=== PATIENT | male | born 1950 | race Caucasian/White ===

== ENCOUNTER → 2025-06-14 07:36 | Outpatient (CLI) | payer MEDICARE, SELFPAY ==
--- NOTE | 2025-06-14 17:53 | DI.NM.S_ITS ---
DATE OF SERVICE: 06/14/2025 EXERCISE TREADMILL STRESS TEST PROCEDURE PERFORMED: Exercise treadmill stress test without imaging. ORDERING PROVIDER: Dr. Arpan Ortez. INDICATIONS: The patient is a 75-year-old, hypertensive male with a history of carotid disease and asymptomatic bradycardia. FINDINGS: 1. The patient was able to exercise for 9 minutes on a standard Herbert protocol suggesting excellent exercise capacity with an GLORY of -51%, achieving 10.1 METS. 2. He had a normal heart rate response to exercise with a resting heart rate of 58 bpm increasing to a maximum of 140 bpm (98% of his predicted maximum). He had a normal blood pressure response with a resting blood pressure of 160/90 increasing to a maximum of 196/80. 3. He had moderate exertional dyspnea but no chest discomfort or other anginal symptoms. 4. His resting ECG shows sinus bradycardia at [address] segments. With exercise, there are no significant ST-segment shifts or arrhythmias except for occasional PACs and PVCs, the latter rarely in couplets, but no other complex ventricular ectopy. IMPRESSION: 1. Normal exercise treadmill stress test for ischemia. 2. Excellent exercise capacity without angina. He had a normal heart rate and blood pressure response to exercise. 3. Occasional PACs and PVCs, the latter rarely in couplets, but no other complex ectopy. Vik Carbajal - ASTER/hanh/TONE doc#: [id number]/job#: [id number] dd: 06/14/2025 17:21:00 dt: 06/14/2025 17:44:00 DICTATING MD/COPIES TO: Aubrey Sharma MD; Arpan Ortez MD COPIES MNE: DILMA;
== END ==
LOC: NUCM 07:37
PROVIDERS: PCP Family Medicine; Referring Provider Internal Medicine Cardiovascular Disease; Visit Provider Internal Medicine Cardiovascular Disease
DX: R00.1 Bradycardia, unspecified (principal); I65.22 Occlusion and stenosis of left carotid artery; I10 Essential (primary) hypertension; I49.5 Sick sinus syndrome
CPT/HCPCS: 93017